=== PATIENT | male | born 1995 | race Asian ===

== ENCOUNTER 2019-06-10 17:43 | Observation (INO) | payer BC ==
[~2019-06-10] VITALS: Ht 188 cm; Wt 140.0 kg
--- NOTE | 2019-06-10 18:02 | NUR ---
PT AMBULATORY WITH STEADY GAIT TO ROOM FROM TRIAGE. CHANGING INTO GOWN NOW.
--- NOTE | 2019-06-10 18:12 | NUR ---
PT RESTING ON GURNEY. PROVIDED WITH WARM BLANKET. NADN. VSS. CONNECTED TO MONITOR. AWARE THAT HE SHOULD NOT BE EATING OR DRINKING AT THIS TIME. AWAITING MD ASSESSMENT.
--- NOTE | 2019-06-10 18:14 | NUR ---
PT HERE TODAY WITH RLQ ABDOMINAL PAIN THAT STARTED YESTERDAY. SENT FROM TO R/O APPENDICITIS TODAY. PT STATES HE HAS BEEN NAUSEAS AND VOMITING. STATES LAST TIME HE ATE WAS TWO BITES OF BREAD AT 1100 WITH A FEW SIPS OF WATER.
--- NOTE | 2019-06-10 18:58 | NUR ---
pt resting calmly, khushbu, medical student at bedside for eval
[2019-06-10] MEDS ORDERED: ONDANSETRON 2MG/ML, 2ML ONE ×2 (19:14→22:11)
[2019-06-10] MEDS: ONDANSETRON 2MG/ML, 2ML IVPush ONE ×2 (19:25→20:17)
--- NOTE | 2019-06-10 19:25 | NUR ---
pt resting on gurney, monitors in place, iv site started, pt refused zofran for nausea, siderails up x2, call light within reach.
--- NOTE | 2019-06-10 19:26 | NUR ---
pt up to rr with steady gait, urine cup provided
[2019-06-10 19:28] LABS: BASOPHILS # (AUTO) 0.01 x10^3/uL (0-0.1); BASOPHILS % (AUTO) 0 % (0-1); EOSINOPHILS # (AUTO) 0.03 x10^3/uL (0-0.4); EOSINOPHILS % (AUTO) 0 % (1-7); LYMPHOCYTES # (AUTO) 1.17 x10^3/uL (1-3.4); LYMPHOCYTES % (AUTO) 10 % (22-44); MD NO; MEAN CORPUSCULAR HEMOGLOBIN 29.9 pg (27.5-34.5); MEAN CORPUSCULAR HGB CONC 33.5 g/dL (33.2-36.2); MEAN CORPUSCULAR VOLUME 89.2 fL (81-97); MEAN PLATELET VOLUME 7.6 fL (7.4-10.4); MONOCYTES # (AUTO) 0.39 x10^3/uL (0.2-0.8); MONOCYTES % (AUTO) 3 % (2-9); NEUTROPHILS # (AUTO) 10.73 x10^3/uL (1.8-6.8); NEUTROPHILS % (AUTO) 87 % (42-75); PLATELET COUNT 296 x10^3/uL (130-400); RED BLOOD COUNT 4.95 x10^6/uL (4.38-5.82); RED CELL DISTRIBUTION WIDTH 13.4 % (9.4-14.8)
[2019-06-10] MEDS ORDERED: SODIUM CHLORIDE FLUSH 10ML SYR IVF ONE (19:30)
--- NOTE | 2019-06-10 19:39 | NUR ---
urine sample sent
[2019-06-10 19:51] LABS: MICROSCOPIC AUTO
[2019-06-10] MEDS ORDERED: OMNIPAQUE 350 MG/ML, 100ML BOTTLE ONE (20:00)
[2019-06-10 20:04] LABS: ALANINE AMINOTRANSFERASE 23 U/L (12-78); ALBUMIN 4.3 g/dL (3.4-5.0); ANION GAP 10 mmol/L (5-15); CALCIUM 9.7 mg/dL (8.5-10.1); CHLORIDE 105 mmol/L (98-107); CREATININE 1.13 mg/dL (0.7-1.3)
[2019-06-10 20:06] LABS: ALKALINE PHOSPHATASE 91 U/L (45-117); BILIRUBIN,TOTAL 0.7 mg/dL (0.2-1.0); TOTAL PROTEIN 8.4 g/dL (6.4-8.2)
[2019-06-10 20:08] LABS: CULTURE INDICATED? NO
[2019-06-10] MEDS ORDERED: MORPHINE SULFATE 4 MG/ML, 1ML ONE ×2 (20:11→22:11)
--- NOTE | 2019-06-10 20:22 | NUR ---
Medicated per JUL. Pt resting and drowsy after pain morphine, vs stable and monitoring. Family at bedside.
[2019-06-10] MEDS ORDERED: MORPHINE SULFATE 4 MG/ML, 1ML IVPush PRN ×2 (20:30→22:00)
--- NOTE | 2019-06-10 20:58 | NUR ---
Pt reports pain relief after morphine pain 4/10 at this time.
[2019-06-10] MEDS ORDERED: SODIUM CHLORIDE 0.9% 1,000 ML IV ONE ×2 (21:41→21:48)
[2019-06-10] MEDS ORDERED: ONDANSETRON 2MG/ML, 2ML IVPush PRN (22:00)
[2019-06-10] MEDS ORDERED: SODIUM CHLORIDE 0.9% 1,000ML IVBOLUS ONE (22:00)
[2019-06-10] MEDS ORDERED: SODIUM CHLORIDE FLUSH 10ML SYR IVF PRN (22:00)
[2019-06-10] MEDS ORDERED: CEFOTETAN PMX 2GM/50ML 50 ML IV ONE (22:00)
--- NOTE | 2019-06-10 22:09 | NUR ---
pt requesting more pain medication for rlq abd pain, medicated per mar
[2019-06-10 23:06] VITALS: BP 123/76
[2019-06-10 23:07] VITALS: BP 123/76
[2019-06-11 00:32] VITALS: BP 142/77
[2019-06-11] MEDS ORDERED: ONDANSETRON 2MG/ML, 2ML IVPush PRN (01:00)
[2019-06-11] MEDS: morphine SULFATE 10 MG/ML, 1ML IVPush PRN ×2 (01:08→01:27)
[2019-06-11] MEDS ORDERED: EPINEPHRINE 1 MG/ML, 1ML ONE (05:28)
[2019-06-11] MEDS ORDERED: BUPIVACAINE/PF 0.5% ONE (05:28)
[2019-06-11] MEDS ORDERED: BUPIVACAINE/PF-EPI 0.25% 1:200K ONE (06:17)
[2019-06-11] MEDS ORDERED: MIDAZOLAM 1 MG/ML, 2ML ONE (06:38)
[2019-06-11] MEDS ORDERED: FENTANYL PF 250 MCG/5ML ONE (06:38)
[2019-06-11] MEDS ORDERED: DEXAMETHASONE 4 MG/ML, 1ML ONE ×2 (06:59)
[2019-06-11] MEDS ORDERED: BUPIVACAINE/PF-EPI 0.25% 1:200K INFIL ONE (07:06)
[2019-06-11] MEDS ORDERED: SUCCINYLCHOLINE 20 MG/ML, 10ML ONE (07:15)
[2019-06-11] MEDS ORDERED: PROPOFOL 10 MG/ML, 20ML ONE (07:15)
[2019-06-11] MEDS ORDERED: KETOROLAC 30 MG/1 ML ONE (07:15)
[2019-06-11] MEDS ORDERED: ROCURONIUM 10MG/ML,5ML ONE (07:15)
[2019-06-11] MEDS ORDERED: ONDANSETRON 2MG/ML, 2ML ONE (07:16)
[2019-06-11] MEDS ORDERED: HYDROmorphone 2 MG/ML, 1ML IVPush PRN (07:30)
[2019-06-11] MEDS ORDERED: hydrALAzine 20 MG/ML, 1ML IV PRN (07:30)
[2019-06-11] MEDS ORDERED: ONDANSETRON 2MG/ML, 2ML IV PRN (07:30)
[2019-06-11] MEDS ORDERED: FENTANYL PF 100 MCG/2ML IV PRN (07:30)
[2019-06-11] MEDS ORDERED: LABETALOL 5MG/ML, 20ML IV PRN (07:30)
[2019-06-11] MEDS ORDERED: OXYcodone 5 MG/5 ML ORAL.SOL UDC PO PRN (07:30)
[2019-06-11] MEDS ORDERED: PROMETHAZINE 25 MG/ML, 1ML IV PRN (07:30)
[2019-06-11] MEDS ORDERED: MEPERIDINE/PF 25MG/ML,1ML IVPush PRN (07:30)
[2019-06-11] MEDS ORDERED: OXYcodone 5 MG/5 ML ORAL.SOL UDC ONE (07:57)
[2019-06-11] MEDS ORDERED: ACETAMINOPHEN 650 MG/20.3 ML UDC ONE (08:01)
[2019-06-11 08:30] VITALS: BP 111/66
[2019-06-11] MEDS ORDERED: ACETAMINOPHEN 325 MG TABLET PO PRN (08:30)
[2019-06-11] MEDS ORDERED: HYDROcodone/APAP 5/325 TABLET PO PRN (09:00)
[2019-06-11] MEDS ORDERED: KETOROLAC 30 MG/1 ML IV PRN (09:00)
[2019-06-11] MEDS ORDERED: HYDR-3240 PO (09:25)
[2019-06-11] MEDS ORDERED: AMOX1TAB64 PO (09:26)
[2019-06-11 14:00] VITALS: BP 106/69
== END 2019-06-11 16:10 | disposition home or self-care (01) ==
LOC: ED 22:12 → EDIP 22:23 → INTOOBSV 22:23 → UNDOADMOB 22:23 → 4NE 22:59 → EDIP 22:59 → 4NE 06-11 11:07 → DCLOUNGE 06-11 16:03
PROVIDERS: ADMIT Surgery; ATTEND Surgery
DX: K35.80 Unspecified acute appendicitis (principal); R11.2 Nausea with vomiting, unspecified
CPT/HCPCS: 36415; 44970; 74177; 80053; 81001; 85025; 88304; 96361; 96365; 96375; 96376; 99284; C1729; G0378; J0171; J0330; J1100; J1885; J2250; J2270; J2405; J2704; J3010; J3490; J7030; Q9967; S0020